=== PATIENT | female | born 1930 | race Caucasian/White ===

== ENCOUNTER 2017-07-20 17:39 | Inpatient (IN) | payer MEDICARE, OTHER ==
[~2017-07-20] VITALS: Ht 170.2 cm; Wt 90.0 kg
[2017-07-20 18:19] VITALS: BP 194/83
--- NOTE | 2017-07-20 18:30 | NUR ---
NSG NOTE; ADMISSION DIRECT ADMISSION TO ROOM 107 VIA W/C ACCOMP BY FAMILY MEMBERS PT STATES HER LEFT FOOT HAS GOTTEN MORE SWOLLEN OVER THE LAST 3 DAYS AND IS PURPLE IN COLOR.
[2017-07-20] MEDS ORDERED: METHADONE 5 MG TABLET. PO PRN (19:15)
[2017-07-20] MEDS ORDERED: traMADol 50 MG TABLET PO PRN (19:15)
[2017-07-20] MEDS ORDERED: ASPI325T8 PO (19:16)
[2017-07-20] MEDS ORDERED: MELO15TA23 PO (19:16)
[2017-07-20] MEDS ORDERED: CHOL10003 PO (19:16)
[2017-07-20] MEDS ORDERED: TRAM50TA PO (19:16)
[2017-07-20] MEDS ORDERED: METH5TAB2 PO (19:16)
[2017-07-20] MEDS ORDERED: TERA5CAP3 PO (19:16)
[2017-07-20] MEDS ORDERED: SERT100T PO (19:16)
[2017-07-20] MEDS ORDERED: VITA400C36 PO (19:16)
[2017-07-20] MEDS ORDERED: TOLT4CAP PO (19:16)
[2017-07-20] MEDS ORDERED: QUIN10TA15 PO (19:16)
--- NOTE | 2017-07-20 19:26 | NUR ---
NSG NOTE; LEFT FOOT PT ARRIVED AND SAT ON THE SIDE OF THE BED. HER FOOT WAS WRAPPED IN COBAN. HER TOES THAT WERE VISIBLE WERE PURPLE WE GOT HER FLAT IN THE BED AND REMOVED THE WRAP. HER TOES WERE INITIALLY PURPLE WITH POOR CAP REFILL. THE PEDAL PULSES ARE PRESENT AND STRONG. AFTER HAVING HER LEGS UP ON THE BED FOR SEVERAL MINUTES, THE TOES REGAINED COLOR AND BECAME MORE PINK RATHER THAN PURPLE. U/S IS IN THE ROOM AT THIS TIME PERFORMING THE ARTERIAL DOPLER ON HER LEG
--- NOTE | 2017-07-20 19:53 | RAD ---
EXAM: Left lower extremity arterial Doppler sonogram. HISTORY: Foot discoloration and pain. TECHNIQUE: Grayscale and color Doppler sonographic imaging of the lower extent of the arteries with spectral waveform analysis was performed. COMPARISON: None. FINDINGS: There are normal waveforms and peak systolic velocities within the left lower extremity arteries. No occlusion is seen. No high-grade stenosis is seen. For reference purposes, the peak systolic velocities measure 107 cm/s within the common femoral artery, 90 cm/s within the deep femoral artery, 104 cm/s within the proximal superficial femoral artery, 63 cm/s within the mid superficial femoral artery, 73 cm/s within the distal superficial femoral artery, 77 cm/s within the popliteal artery, 38 cm/s within the proximal posterior tibial artery, 56 cm/s within the distal posterior tibial artery, 41 cm/s within the peroneal artery, 28 cm/s within the anterior tibial artery, and 78 cm/s within the dorsalis pedis artery. IMPRESSION: No Doppler evidence of hemodynamically significant stenosis involving the left lower extremity arteries. Electronically signed by: Karen Savage MD (07/20/2017 7:50 PM) [facility]
[2017-07-20 19:57] LABS: BASO % 1 % (0-3); EOS # 0.3 x10^3/uL (0.0-0.7); EOS % 5 % (0-3); HEMATOCRIT 42.2 % (36.0-47.0); HEMOGLOBIN 14.3 g/dL (12.0-15.5); LYMPH # 1.3 x10^3/uL (1.0-4.8); LYMPH % 21 % (24-48); MEAN CORPUSCULAR HEMOGLOBIN 32 pg (25-35); MEAN CORPUSCULAR HGB CONC 34 g/dL (31-37); MEAN CORPUSCULAR VOLUME 95 fL (79-100); MONO # 0.6 x10^3/uL (0.0-1.1); MONO % 10 % (0-9); NEUT # 3.9 x10^3uL (1.8-7.7); NEUT % 63 % (31-73); PLATELET COUNT 199 x10^3/uL (140-400); RED BLOOD COUNT 4.46 x10^6/uL (3.50-5.40); RED CELL DISTRIBUTION WIDTH 14.8 % (11.5-14.5); WHITE BLOOD COUNT 6.1 x10^3/uL (4.0-11.0)
[2017-07-20 20:02] LABS: ALBUMIN 3.6 g/dL (3.4-5.0); CALCIUM 9.8 mg/dL (8.5-10.1); CREATININE 0.8 mg/dL (0.6-1.0); TOTAL BILIRUBIN 0.8 mg/dL (0.2-1.0); TOTAL PROTEIN 7.2 g/dL (6.4-8.2)
[2017-07-20 20:03] LABS: POTASSIUM 4.4 mmol/L (3.5-5.1)
[2017-07-20] MEDS ORDERED: MELATONIN 3 MG TABLET PO PRN (20:15)
[2017-07-20] MEDS ORDERED: SERTRALINE 100 MG TABLET. PO SCH (21:00)
[2017-07-20] MEDS ORDERED: TERAZOSIN 5 MG CAPSULE. PO SCH (21:00)
[2017-07-20 21:45] VITALS: BP 162/76
[2017-07-20 22:50] VITALS: BP 125/65
[2017-07-21 06:00] VITALS: BP 124/62
[2017-07-21 06:22] LABS: BASO % 1 % (0-3); EOS # 0.3 x10^3/uL (0.0-0.7); EOS % 7 % (0-3); HEMOGLOBIN 12.6 g/dL (12.0-15.5); LYMPH # 1.3 x10^3/uL (1.0-4.8); LYMPH % 30 % (24-48); MEAN CORPUSCULAR HEMOGLOBIN 32 pg (25-35); MEAN CORPUSCULAR HGB CONC 34 g/dL (31-37); MEAN CORPUSCULAR VOLUME 95 fL (79-100); MONO # 0.5 x10^3/uL (0.0-1.1); MONO % 11 % (0-9); NEUT # 2.2 x10^3uL (1.8-7.7); NEUT % 51 % (31-73); PLATELET COUNT 152 x10^3/uL (140-400); RED BLOOD COUNT 3.91 x10^6/uL (3.50-5.40); RED CELL DISTRIBUTION WIDTH 14.6 % (11.5-14.5); WHITE BLOOD COUNT 4.2 x10^3/uL (4.0-11.0)
[2017-07-21 06:28] LABS: CALCIUM 9.1 mg/dL (8.5-10.1); CREATININE 0.7 mg/dL (0.6-1.0); GFR 79.3; POTASSIUM 3.7 mmol/L (3.5-5.1)
[2017-07-21] MEDS ORDERED: IOHEXOL 300 MG/ML 75 ML VIAL. IV ONE (06:30)
[2017-07-21] MEDS ORDERED: CONTRAST GIVEN MC PRN (06:30)
[2017-07-21] MEDS: OXYBUTYNIN CHLORIDE 5 MG TABLET PO SCH ×2 (08:24→14:00)
--- NOTE | 2017-07-21 08:40 | RAD ---
CHEST PA LATERAL Clinical Indication: Shortness of air Comparison: Chest radiograph dated 06/11/2006 Findings: Low lung volume. No focal consolidations. Normal pulmonary vasculature. No pleural effusion or pneumothorax. The cardiomediastinal silhouette and great vessels are normal. Large hiatal hernia. No acute osseous abnormality. IMPRESSION: 1. No acute cardiopulmonary process. 2. Large hiatal hernia.
--- NOTE | 2017-07-21 08:53 | RAD ---
CT CHEST WITH CONTRAST, PULMONARY ANGIOGRAM History: High D-dimer, shortness of air, concerning for PE Comparison: Chest radiograph dated 06/11/2006. Technique: Helical CT of the chest was performed after the administration of 75 cc of Omnipaque 300 intravenous contrast according to PE protocol. 3-D MIP coronal reconstruction was performed to better evaluate the pulmonary arteries. Findings: Pulmonary arteries are adequately opacified. There is no evidence of pulmonary embolism. The thyroid is symmetric. There is no axillary, mediastinal, or hilar adenopathy. Large hiatal hernia. Mild atherosclerosis of the thoracic aorta and its branches. Aortic valvular calcifications. Coronary artery calcifications. The cardiac size is normal. There is no pericardial effusion. The central airways are patent. Left lower lobe atelectasis related to large lateral hernia. 0.4 cm right upper lobe nodule (image 19, series 3). There is no focal consolidation. No pleural effusion is observed. There is no pneumothorax. 1.8 cm right renal cyst. The visualized upper abdomen is otherwise unremarkable. There are mild degenerative changes of the thoracic spine. No acute osseous abnormality. IMPRESSION: 1. There is no CT evidence of pulmonary embolus. 2. 0.4 cm right upper lobe pulmonary nodule. Following Fleischner criteria below, if patient is of low risk, no further follow-up is required. If patient is of high risk, recommend follow-up CT chest in 12 months. 3. Large hiatal hernia. Nodules detected incidentally at non-screening CT Nodule size (mm) less than or equal to 4 Low Risk patients- no follow-up needed High Risk patients- follow-up at 12 months and if no change, no further imaging needed. Nodule size > 4-6 mm Low risk patients- follow- up at 12 months and if no change, no further imaging needed High risk patients- initial follow-up CT at 6-12 months and then at 18-24 months if no change. Nodule Size > 6-8 mm Low risk patients- initial follow-up CT at 6-12 months and then at 18-24 months if no change. High risk patients- initial follow- up CT at 3-6 months and then at 9-12 months if no change, Nodule Size >8 mm Either low or high risk patients: Follow-up CT at around 3, 9 and 24 [address], PET, and/or biopsy Note: newly detected indeterminate nodule in person 35 years of age or older. Low risk patients- minimal or absent history of smoking and/or other known risk factors. High risk patients- history of smoking or of other known risk factors. PQRS Compliance Statement: One or more of the following individualized dose reduction techniques were utilized for this examination: 1. Automated exposure control 2. Adjustment of the mA and/or kV according to patient size 3. Use of iterative reconstruction technique
[2017-07-21] MEDS ORDERED: MELOXICAM 15 MG TABLET. PO SCH (09:00)
[2017-07-21] MEDS ORDERED: VITAMIN E. 400 UNIT CAPSULE. PO SCH (09:00)
[2017-07-21] MEDS ORDERED: LISINOPRIL 10 MG TABLET PO SCH (09:00)
[2017-07-21] MEDS ORDERED: CHOLECALCIFEROL (VITAMIN D3) 1,000 UNIT TABLET PO SCH (09:00)
[2017-07-21] MEDS ORDERED: ASPIRIN 325 MG TABLET PO SCH (09:00)
[2017-07-21 10:59] VITALS: BP 114/63
[2017-07-21] MEDS ORDERED: TRAM50TA PO (12:47)
--- NOTE | 2017-07-21 12:57 | RAD ---
Bilateral lower extremity venous Doppler ultrasound History: Concern for DVT, Swollen red legs Comparison: None. Procedure: Color flow, spectral Doppler analysis, and 2D images are obtained with and without compression in the legs Findings: There is normal color flow and compressibility of all visualized deep vein segments. No evidence of deep venous thrombus is present. Visualized bilateral greater saphenous veins are patent. Visualized bilateral posterior tibial and peroneal veins are patent. Spectral waveform analysis is normal, all vein segments augment normally. IMPRESSION: No evidence of bilateral lower extremity deep venous thrombosis.
--- NOTE | 2017-07-21 14:57 | NUR ---
Pt discharged home for self care. Pt left unit in stable condition via wheelchair accompanied by spouse and rn. IV discontinued without complications, pressure dressing applied. Discharge instructions and new prescription instructions given to pt. All pt belongings sent with pt.
--- NOTE | 2017-07-21 15:11 | RAD ---
FOOT LEFT 3V Clinical Indication: Foot pain Comparison: None. Findings: No acute fracture or malalignment. Hallux valgus deformity. Moderate multifocal arthrosis. Second through fifth hammertoe deformities. Os naviculare. Calcaneal enthesophytes. Suggestion of diffuse osteopenia. Moderate soft tissue swelling of the foot and ankle. Vascular calcifications. No radiopaque foreign body. IMPRESSION: 1. No acute fracture or malalignment. 2. Moderate multifocal arthrosis. 3. Moderate soft tissue swelling of the foot and ankle.
--- NOTE | 2017-07-22 00:15 | DS ---
DATE OF DISCHARGE: 07/21/2017 HOSPITAL COURSE: An 86-year-old female with severe coldness to her left foot with decreased capillary refill, severe pain in that foot. The patient was admitted. Arterial Dopplers were performed. The patient made excellent progress during the rest of her hospitalization. She did have an elevated D-dimer. CTA was performed and it was negative. Possible repeat CT scan in a year. Other than that, the patient also had venous Dopplers, they were negative. Arterial Doppler did show no major obstruction, although there may have been some apparently small vessel disease. Otherwise, the patient made good progress and was discharged home. IMPRESSION: Arterial venous insufficiency. The patient will continue to monitor her situation with her legs and make further evaluation as indicated as an outpatient. See EMRAD. Regular diet. JASON PORTILLO MD DR: ELSY/shakira JOB#: [id number] / [id number]
== END 2017-07-21 14:45 | disposition home or self-care (01) | DRG 301 ==
LOC: 1 SOUTH 17:39
PROVIDERS: ADMIT Family Medicine; ATTEND Family Medicine
DX: I73.9 Peripheral vascular disease, unspecified (principal); I10 Essential (primary) hypertension; I87.2 Venous insufficiency (chronic) (peripheral); R79.1 Abnormal coagulation profile; R32 Unspecified urinary incontinence; Z96.641 Presence of right artificial hip joint
CPT/HCPCS: 36415; 71046; 71275; 73630; 80048; 80053; 83605; 85025; 85379; 85610; 85651; 93923; 93970; Q9967

== ENCOUNTER 2018-03-16 14:05 | Inpatient (IN) | payer MEDICARE, OTHER ==
[~2018-03-16] VITALS: Ht 170.2 cm; Wt 84.5 kg
[~2018-03-16 14:05] MED LIST: ASPI325T8 PO; CHOL10003 PO; MELO15TA23 PO; METH5TAB2 PO; QUIN10TA15 PO; SERT100T PO; TERA5CAP3 PO; TOLT4CAP PO; TRAM50TA PO; VITA400C36 PO
[2018-03-16 15:23] LABS: BASO % 0 % (0-3); EOS % 0 % (0-3); HEMATOCRIT 41.7 % (36.0-47.0); HEMOGLOBIN 13.8 g/dL (12.0-15.5); LYMPH # 0.4 x10^3/uL (1.0-4.8); LYMPH % 4 % (24-48); MEAN CORPUSCULAR HEMOGLOBIN 31 pg (25-35); MEAN CORPUSCULAR HGB CONC 33 g/dL (31-37); MEAN CORPUSCULAR VOLUME 94 fL (79-100); MONO # 0.9 x10^3/uL (0.0-1.1); MONO % 10 % (0-9); NEUT # 8.3 x10^3uL (1.8-7.7); NEUT % 86 % (31-73); PLATELET COUNT 177 x10^3/uL (140-400); RED BLOOD COUNT 4.42 x10^6/uL (3.50-5.40); RED CELL DISTRIBUTION WIDTH 14.3 % (11.5-14.5); WHITE BLOOD COUNT 9.6 x10^3/uL (4.0-11.0)
[2018-03-16 15:39] LABS: ALBUMIN 3.1 g/dL (3.4-5.0); ALBUMIN/GLOBULIN RATIO 0.8 (1.0-1.7); CALCIUM 9.9 mg/dL (8.5-10.1); CREATININE 0.8 mg/dL (0.6-1.0); GFR 67.8; POTASSIUM 4.4 mmol/L (3.5-5.1); TOTAL BILIRUBIN 1.3 mg/dL (0.2-1.0); TOTAL PROTEIN 7.2 g/dL (6.4-8.2)
--- NOTE | 2018-03-16 16:30 | RAD ---
Right rib series to include a chest radiograph 03/16/2018 CLINICAL HISTORY: Right rib pain post fall. A portable AP digital radiograph of the chest was obtained. Portable oblique and 2 portable AP digital radiographs of the right ribs were obtained. Comparison study is dated 07/21/2017. The cardiac silhouette is mildly enlarged. The thoracic aorta is tortuous. Atherosclerotic calcification of the thoracic aorta is seen. There is a large hiatal hernia. No acute pulmonary infiltrate is seen. No pleural effusion or pneumothorax is noted. Degenerative changes are seen involving the thoracic spine and both shoulders. No right-sided rib fracture is seen. IMPRESSION: No right-sided rib fracture is seen. Electronically signed by: Erwin Mann MD (03/16/2018 4:27 PM) [facility] [place]
--- NOTE | 2018-03-16 16:42 | RAD ---
Three-view right knee radiographs 03/16/2018 CLINICAL HISTORY: Fall with right knee pain. AP, lateral and oblique digital radiographs of the right knee were obtained. No fracture or dislocation of the right knee is seen. There is a small to moderate prepatellar joint effusion. Moderate degenerative changes are seen involving all 3 compartments of the right knee. Small bony densities which measure 2 mm to 7 mm in size are seen anteriorly within the right knee joint consistent with loose bodies. IMPRESSION: No acute fracture or dislocation of the right knee is seen. Electronically signed by: Erwin Mann MD (03/16/2018 4:38 PM) [facility] [place]
--- NOTE | 2018-03-16 17:05 | PHYS DOC ---
Past History Past Medical History: Depression, Hypertension, Other Past Surgical History: Hip Replacement, Other Alcohol Use: Occasionally Drug Use: None Adult General Chief Complaint Chief Complaint: MECHANICAL FALL HPI HPI Patient is an 87-year-old female who presents with report of midthoracic back pain after falling at home yesterday. Family was attempting to help patient transfer from her recliner chair to wheelchair when she fell out of the recliner. Patient was slowly lowered to the ground but still landed on her back and is complaining of pain since. She states that last night the pain was not severe but this morning when she woke up the pain was much worse. She rates pain at nearly a 10 out of 10. Patient arrived via EMS and has already been given a dose of fentanyl. She states that at this time pain is more like a 6 out of 10. She denies any painful urination, fever, nausea or vomiting. She also denies any radiation of the pain and has had no loss of bowel or bladder control. Review of Systems Review of Systems Constitutional: Denies fever or chills [] Respiratory: Denies cough or shortness of breath [] Cardiovascular: No additional information not addressed in HPI [] GI: Denies abdominal pain, nausea, vomiting or diarrhea [] : Denies dysuria or hematuria [] Musculoskeletal: Complains of midthoracic back pain [] Integument: Denies rash or skin lesions [] Neurologic: Denies headache, focal weakness or sensory changes [] All other systems were reviewed and found to be within normal limits, except as documented in this note. Allergies Allergies Allergies Coded Allergies Type Severity Reaction Last Updated Verified No Known Drug Allergies 07/20/17 No Physical Exam Physical Exam Constitutional: Well developed, well nourished, no acute distress, non-toxic appearance. [] HENT: Normocephalic, atraumatic, bilateral external ears normal, oropharynx moist, no oral exudates, nose normal. [] Eyes: PERRLA, EOMI, conjunctiva normal, no discharge. [] Neck: Normal range of motion, no tenderness, supple, no stridor. [] Cardiovascular: Regular rate and rhythm [] Lungs & Thorax: Bilateral breath sounds clear to auscultation [] Abdomen: Bowel sounds normal, soft, no tenderness. [] Skin: Warm, dry, no erythema, no rash. [] Back: Examination of the back demonstrates tenderness to palpation just to the right of midline around the mid to lower thoracic region from T8-T11. [] Extremities: No tenderness, no cyanosis, no clubbing, ROM intact. [] Neurologic: Alert and oriented X 3, no focal deficits noted. [] Current Patient Data Vital Signs Vital Signs Date Time Temp Pulse Resp B/P (MAP) Pulse Ox O2 Delivery O2 Flow Rate FiO2 03/16/18 16:37 83 20 177/82 (113) 98 Room Air 03/16/18 14:05 98.0 Lab Results Laboratory Tests Test 03/16/18 15:00 White Blood Count 9.6 x10^3/uL (4.0-11.0) Red Blood Count 4.42 x10^6/uL (3.50-5.40) Hemoglobin 13.8 g/dL (12.0-15.5) Hematocrit 41.7 % (36.0-47.0) Mean Corpuscular Volume 94 fL (79-100) Mean Corpuscular Hemoglobin 31 pg (25-35) Mean Corpuscular Hemoglobin Concent 33 g/dL (31-37) Red Cell Distribution Width 14.3 % (11.5-14.5) Platelet Count 177 x10^3/uL (140-400) Neutrophils (%) (Auto) 86 % (31-73) H Lymphocytes (%) (Auto) 4 % (24-48) L Monocytes (%) (Auto) 10 % (0-9) H Eosinophils (%) (Auto) 0 % (0-3) Basophils (%) (Auto) 0 % (0-3) Neutrophils # (Auto) 8.3 x10^3uL (1.8-7.7) H Lymphocytes # (Auto) 0.4 x10^3/uL (1.0-4.8) L Monocytes # (Auto) 0.9 x10^3/uL (0.0-1.1) Eosinophils # (Auto) 0.0 x10^3/uL (0.0-0.7) Basophils # (Auto) 0.0 x10^3/uL (0.0-0.2) Platelet Estimate Pending Sodium Level 138 mmol/L (136-145) Potassium Level 4.4 mmol/L (3.5-5.1) Chloride Level 101 mmol/L (98-107) Carbon Dioxide Level 25 mmol/L (21-32) Anion Gap 12 (6-14) Blood Urea Nitrogen 19 mg/dL (7-20) Creatinine 0.8 mg/dL (0.6-1.0) Estimated GFR (Cockcroft-Gault) 67.8 BUN/Creatinine Ratio 24 (6-20) H Glucose Level 103 mg/dL (70-99) H Calcium Level 9.9 mg/dL (8.5-10.1) Total Bilirubin 1.3 mg/dL (0.2-1.0) H Aspartate Amino Transferase (AST) 15 U/L (15-37) Alanine Aminotransferase (ALT) 11 U/L (14-59) L Alkaline Phosphatase 72 U/L (46-116) Total Protein 7.2 g/dL (6.4-8.2) Albumin 3.1 g/dL (3.4-5.0) L Albumin/Globulin Ratio 0.8 (1.0-1.7) L EKG EKG [] Radiology/Procedures Radiology/Procedures [] Impressions: PROCEDURE: RIBS RIGHT AND PA CHEST Right rib series to include a chest radiograph 03/16/2018 CT imaging of the thoracic and lumbar spine demonstrates no acute bony abnormalities. CLINICAL HISTORY: Right rib pain post fall. A portable AP digital radiograph of the chest was obtained. Portable oblique and 2 portable AP digital radiographs of the right ribs were obtained. Comparison study is dated 07/21/2017. The cardiac silhouette is mildly enlarged. The thoracic aorta is tortuous. Atherosclerotic calcification of the thoracic aorta is seen. There is a large hiatal hernia. No acute pulmonary infiltrate is seen. No pleural effusion or pneumothorax is noted. Degenerative changes are seen involving the thoracic spine and both shoulders. No right-sided rib fracture is seen. IMPRESSION: No right-sided rib fracture is seen. Electronically signed by: Erwin Mann MD (03/16/2018 4:27 PM) [facility] [place] Course & Med Decision Making Course & Med Decision Making Pertinent Labs and Imaging studies reviewed. (See chart for details) [] Dragon Disclaimer Dragon Disclaimer This electronic medical record was generated, in whole or in part, using a voice recognition dictation system. Departure Departure: Impression: Primary Impression: Intractable back pain Disposition: 09 ADMITTED INPATIENT Admitting Physician: Jason Ochoa Condition: IMPROVED Referrals: JASON OCHOA MD (PCP) PAULINO OSORIO Jr. DO Mar 16, 2018 17:05
[2018-03-16] MEDS ORDERED: ORPHENADRINE CITRATE 60 MG/2 ML VIAL. IM PRN (17:15)
[2018-03-16] MEDS ORDERED: ONDANSETRON PF 4 MG/2 ML VIAL. IV PRN (17:15)
[2018-03-16] MEDS ORDERED: ORPHENADRINE CITRATE 60 MG/2 ML VIAL. IV ONE (17:30)
[2018-03-16 18:02] LABS: OVALOCYTES OCC; PLT ESTIMATE ADEQUATE (ADEQUATE)
[2018-03-16 18:13] VITALS: BP 163/93
[2018-03-16] MEDS ORDERED: traMADol 50 MG TABLET PO PRN (18:30)
[2018-03-16] MEDS ORDERED: METHADONE 5 MG TABLET. PO PRN (18:30)
[2018-03-16] MEDS ORDERED: Influenza vaccine per PROTOCOL. MC PRN (18:45)
[2018-03-16] MEDS: METHADONE 5 MG TABLET. PO SCH (20:04)
[2018-03-16] MEDS: SERTRALINE 100 MG TABLET. PO SCH (20:04)
[2018-03-16] MEDS: TERAZOSIN 5 MG CAPSULE. PO SCH (20:05)
[2018-03-16] MEDS: OXYBUTYNIN CHLORIDE 5 MG TABLET PO SCH (20:06)
[2018-03-16 23:10] VITALS: BP 134/63
[2018-03-17 06:25] VITALS: BP 120/69
[2018-03-17] MEDS: MELOXICAM 15 MG TABLET. PO SCH (08:59)
[2018-03-17] MEDS: CHOLECALCIFEROL (VITAMIN D3) 1,000 UNIT TABLET PO SCH (08:59)
[2018-03-17] MEDS: VITAMIN E. 400 UNIT CAPSULE. PO SCH (08:59)
[2018-03-17] MEDS: METHADONE 5 MG TABLET. PO SCH ×3 (08:59→20:53)
[2018-03-17] MEDS: OXYBUTYNIN CHLORIDE 5 MG TABLET PO SCH ×3 (08:59→20:52)
[2018-03-17] MEDS: LISINOPRIL 10 MG TABLET PO SCH (08:59)
[2018-03-17] MEDS: ASPIRIN 325 MG TABLET PO SCH (09:00)
[2018-03-17 11:21] VITALS: BP 90/58
[2018-03-17] MEDS ORDERED: traMADol 50 MG TABLET PO PRN (12:45)
--- NOTE | 2018-03-17 13:58 | HP ---
ADMIT DATE: 03/16/2018 HISTORY OF PRESENT ILLNESS: This is a very delightful 87-year-old female, who has been having trouble with excruciating pain to the point where she can get out of bed. The patient noted she had a fall and then mid thoracic back pain. The day before yesterday, she fell at home. The patient was able to get back in her recliner with the help of her family. She rates the pain is 10/10. The patient was brought in via EMS to be evaluated there and will need further testing on her. The patient has severe problems with her hip. The patient was noted to have severe pain there as well. PAST MEDICAL HISTORY: Cataracts, cataract extraction, cardiac problems, hypertension, obesity, incontinence, arthritis, joint pain, right hip replacement with hardware, back pain, and depression. Tetanus shot, pneumococcal vaccinations, latter being up-to-date. FAMILY HISTORY: Brother with stomach cancer and brain cancer. Father with aneurysm. One sister with heart failure. Mother with Alzheimer's disease. ALLERGIES: No known allergies. MEDICATIONS Include ____ 5 mg at bedtime, quinapril 10 mg, aspirin 325, Meloxicam 15. New medications started here: Tramadol p.r.n., sertraline, Zoloft, Detrol-LA, vitamin D3, vitamin E. ADVERSE REACTIONS: No known drug allergies. SOCIAL HISTORY: Denies smoking, alcohol or drug use. Lives at home with her and has very good family support. REVIEW OF SYSTEMS: She denies chest pain or shortness of breath. She denies abdominal pain. Denies any melena, hematochezia, or hematemesis, but does have severe back and hip pain. She is pretty much confined to a wheelchair or to a situation. Otherwise, she will be continued to be monitored there. PHYSICAL EXAMINATION: GENERAL: Pleasant white female in moderate to severe pain. VITAL SIGNS: Blood pressure initially 195/100, respiratory rate 16, and pulse 83, afebrile. HEENT: The patient's head was atraumatic, normocephalic. Eyes: PERRLA without jaundice. Mouth and throat were normal. LUNGS: Diminished, but clear. CARDIOVASCULAR: Regular sinus rhythm. ABDOMEN: Soft and nontender. EXTREMITIES: Severe pain to the right hip and back is noted. NEUROLOGIC: Intact. LABORATORY DATA: The patient's labs are basically stable with a CBC. The patient's blood sugar is 103 and bilirubin 1.3. PLAN: The patient will be admitted for further evaluation, although severity of her pain, started her on methadone for pain relief and make further evaluation on her as indicated per those results. JASON PORTILLO MD DR: ELSY/shakira JOB#: [id number] / [id number]
[2018-03-17 15:00] VITALS: BP 108/64
[2018-03-17 18:39] VITALS: BP 111/63
[2018-03-17] MEDS: TERAZOSIN 5 MG CAPSULE. PO SCH (20:52)
[2018-03-17] MEDS: SERTRALINE 100 MG TABLET. PO SCH (20:53)
[2018-03-17 23:50] VITALS: BP 102/62
[2018-03-18 07:14] VITALS: BP 120/65
[2018-03-18] MEDS: METHADONE 5 MG TABLET. PO SCH (08:46)
[2018-03-18] MEDS: MELOXICAM 15 MG TABLET. PO SCH (08:46)
[2018-03-18] MEDS: ASPIRIN 325 MG TABLET PO SCH (08:46)
[2018-03-18 08:47] VITALS: BP 120/65
[2018-03-18] MEDS: OXYBUTYNIN CHLORIDE 5 MG TABLET PO SCH (08:47)
[2018-03-18] MEDS: CHOLECALCIFEROL (VITAMIN D3) 1,000 UNIT TABLET PO SCH (08:47)
[2018-03-18] MEDS: VITAMIN E. 400 UNIT CAPSULE. PO SCH (08:47)
[2018-03-18] MEDS: LISINOPRIL 10 MG TABLET PO SCH (08:47)
[2018-03-18] MEDS ORDERED: PNEUMOC CONJ VACC 23-VALENT 0.5 ML VIAL. VAX IM ONE (09:00)
--- NOTE | 2018-03-18 09:33 | RAD ---
PQRS Compliance Statement: One or more of the following individualized dose reduction techniques were utilized for this examination: 1. Automated exposure control 2. Adjustment of the mA and/or kV according to patient size 3. Use of iterative reconstruction technique Thoracic and lumbar spine CT without contrast March 17, 2018 INDICATION: Lower back pain for 4 days. COMPARISON: None available TECHNIQUE: Axial CT images of the thoracic and lumbar spine were obtained without intravenous contrast. Coronal and sagittal reformats are provided. FINDINGS: Thoracic spine: Alignment of the lumbar spine is normal. There is a superior plate Schmorl's node at T11 with minimal height loss, likely chronic. There is mild disc height loss at T9-T10, T10-T11 and T11-T12 with associated vacuum disc, and endplate remodeling. Moderate anterior marginal osteophytosis is identified from T7-T8 through T11-T12. Mild to moderate multilevel facet arthropathy is identified. No significant osseous neuroforaminal or spinal canal stenosis. There is subsegmental atelectasis at the left lung base. No suspicious pulmonary mass. Descending thoracic aorta is normal in caliber measuring up to 2.8 cm. There is a large hiatal hernia with predominantly intrathoracic stomach and air-fluid level. Lumbar spine: There is grade 1 retrolisthesis of L2 on L3 and L3 on L4. There is minimal retrolisthesis of L4 on L5. No significant height loss is identified. There is mild sclerosis involving the anterior superior endplate of L2 without definite fracture. There is moderate to advanced disc height loss from L2-L3 through L5-S1 with multilevel vacuum disc phenomena. Large anterior marginal osteophytes are present. There is levoconvex curvature of the lumbar spine. No definite acute fracture involving the sacrum. Vacuum disc phenomena is noted in the left sacroiliac joint. Partial visualization of right total hip arthroplasty is noted. Nondilated bowel loops are identified. Renal cortical cysts are identified. There is no hydronephrosis. Visualized portions of the retroperitoneum appear normal. Abdominal aorta is normal in caliber with moderate calcified atheromatous plaque. L2-L3: There is a posterior disc osteophyte complex with moderate facet arthropathy and ligamentum flavum infolding resulting in moderate left and mild right neuroforaminal stenosis. There is mild to moderate spinal canal stenosis. L3-L4: There is a circumferential disc bulge with moderate facet arthropathy and ligamentum flavum infolding. There is moderate osseous bilateral neuroforaminal stenosis. There is mild to moderate spinal canal stenosis. L4-L5: There is a moderate circumferential disc bulge. There is severe facet arthropathy ligamentum flavum infolding. There is severe left and moderate right neuroforaminal stenosis. Mild to moderate spinal canal stenosis. L5-S1: There is a posterior disc osteophyte complex with central disc protrusion. There is severe facet arthropathy. There is severe bilateral neuroforaminal stenosis. Mild spinal canal stenosis. IMPRESSION: 1. There is a superior endplate Schmorl's node involving T11 with minimal height loss. Findings appear chronic. 2. No definite acute fracture of the lumbar spine. Multilevel listhesis noted, as described in detail above. 3. 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 Electronically signed by: Susanne Donaldson MD (03/18/2018 9:29 AM) [id number]
[2018-03-18] MEDS ORDERED: METH5TAB2 PO (09:44)
[2018-03-18] MEDS ORDERED: TRAM50TA PO (09:44)
[2018-03-18] MEDS ORDERED: MELO15TA23 PO (09:44)
--- NOTE | 2018-03-18 18:03 | DS ---
DATE OF DISCHARGE: 03/18/2018 HOSPITAL COURSE: This is an 87-year-old female, who has been having trouble with excruciating pain in her back to the point where she could not move. Pain was rated 10/10. The patient had to be brought in via EMS. She has severe chronic problems with her left hip and does not want that repaired. The patient's scans demonstrated severe advanced degenerative changes of the lumbar spine and continues to need to be made monitored carefully on that. Her change of medication, she had been on several other types of methadone, seem to be the most efficacious in relieving her pain and once her pain was relieved, she was able to set up a little bit more comfortably and make further evaluation. She was also extremely low in her vitamin D and also had some mild loss of protein or decrease there. In any case, the patient made excellent progress. She did not want to go to a skilled facility, wanted to go home. She was discharged home. 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 DISCHARGE INSTRUCTIONS: The patient was discharged home per her request home health. Follow up with PT, OT as an outpatient and then follow up accordingly. Regular diet, decreased activity, MRAD noted. JASON PORTILLO MD DR: ELSY/shakira JOB#: [id number] / [id number]
== END 2018-03-18 11:30 | disposition home health service (06) | DRG 552 ==
LOC: ER 14:05 → 1 SOUTH 16:50
PROVIDERS: ADMIT Family Medicine; ATTEND Family Medicine
DX: M47.816 Spondylosis without myelopathy or radiculopathy, lumbar region (principal); E44.1 Mild protein-calorie malnutrition; M16.12 Unilateral primary osteoarthritis, left hip; I10 Essential (primary) hypertension; W07.XXXA Fall from chair, initial encounter; M41.9 Scoliosis, unspecified; F32.9 Major depressive disorder, single episode, unspecified; Z96.641 Presence of right artificial hip joint; E66.9 Obesity, unspecified; Y93.89 Activity, other specified; Y92.098 Other place in other non-institutional residence as the place of occurrence of the external cause; Y99.8 Other external cause status; Z80.0 Family history of malignant neoplasm of digestive organs; Z68.29 Body mass index [BMI] 29.0-29.9, adult; Z82.0 Family history of epilepsy and other diseases of the nervous system; Z82.49 Family history of ischemic heart disease and other diseases of the circulatory system; Z80.8 Family history of malignant neoplasm of other organs or systems; Z79.899 Other long term (current) drug therapy; Z23 Encounter for immunization
CPT/HCPCS: 36415; 51702; 71101; 72128; 72131; 73562; 80053; 82306; 84443; 85025; 90471; 90732; 90756; 96374; 96375; G0009; J2360; J3010; 97530; 99285-25; Q2035

== ENCOUNTER 2020-08-16 13:50 | Inpatient (IN) | payer MEDICARE, OTHER ==
[~2020-08-16] VITALS: Ht 170.2 cm; Wt 74.1 kg
[~2020-08-16 13:50] MED LIST changes: +VITA-8 PO; -VITA400C36 PO
[2020-08-16 15:43] VITALS: BP 170/90
--- NOTE | 2020-08-16 17:10 | RAD ---
EXAM: Chest, single view. HISTORY: Nausea, vomiting and diarrhea. COMPARISON: 03/16/2018. FINDINGS: A frontal view of the chest is obtained. There is stable elevation of the left hemidiaphrag m and a large hiatal hernia. There is a stable prominent cardiac silhouette. There is a suspected tra ce left pleural effusion and left basilar atelectasis. There is incidental advanced degenerative pulliam ge involving both shoulders. IMPRESSION: 1. Stable elevation of the left hemidiaphragm and large hiatal hernia. 2. Suspected trace left pleural effusion and left basilar atelectasis. Electronically signed by: Karen Savage MD (08/16/2020 5:08 PM) [id number]
[2020-08-16] MEDS: amLODIPine BESYLATE 10 MG TABLET PO SCH (17:13)
--- NOTE | 2020-08-16 17:26 | NUR ---
NURSING NOTE ADMIT PT DIRECT ADMIT TO ROOM 119 FOR DX OF N/V DEHYDRATION. PT STATES SHE HAS BEEN HAVING DIARRHEA FOR A MONTH NOW. PT STATES SHE LIVES HOME ALONE, IS WHEELCHAIR BOUND AND CANNOT WALK, STATES SHE CAN TRANSFER HERSELF FROM HER CHAIR TO HER WHEELCHAIR TO THE RESTROOM AND BACK TO WHEELCHAIR. PT DENIES FALLS SINCE LAST ADMISSION IN 2018. PT HAS HAD BOTH COVID VACCINES. PT STATES SHE USES [facility] BUT HAS NOT TAKEN ANY HOME MEDICATION FOR THE LAST YEAR. PT DAUGHTER JUDY WELLS AT BEDSIDE AND INVOLVED WITH HER CARES. ZAKIA CRUM.
[2020-08-16 17:57] LABS: BASO % 0 % (0-3); EOS % 1 % (0-3); HEMOGLOBIN 13.9 g/dL (12.0-15.5); LYMPH # 1.1 x10^3/uL (1.0-4.8); LYMPH % 15 % (24-48); MEAN CORPUSCULAR HEMOGLOBIN 31 pg (25-35); MEAN CORPUSCULAR HGB CONC 33 g/dL (31-37); MEAN CORPUSCULAR VOLUME 95 fL (79-100); MONO # 0.6 x10^3/uL (0.0-1.1); MONO % 8 % (0-9); NEUT # 5.4 x10^3uL (1.8-7.7); NEUT % 76 % (31-73); PLATELET COUNT 211 x10^3/uL (140-400); RED BLOOD COUNT 4.44 x10^6/uL (3.50-5.40); WHITE BLOOD COUNT 7.1 x10^3/uL (4.0-11.0)
--- NOTE | 2020-08-16 18:17 | EKG ---
[address] [address] Test Date: 2020-08-16 Test Time: 17:55:41 Pat Name: DANNIELLE ACOSTA Department: Room: 119 A Gender: F [employer] Machine Feeder: : [id number] Requested By: JASON PORTILLO Order Number: [id number] Reading MD: Measurements Intervals [place] Rate: 68 P: 42 RI: 222 QRS: -62 QRSD: 112 T: 64 QT: 412 QTc: 438 Interpretive Statements SINUS RHYTHM PROLONGED RI INTERVAL ABNORMAL LEFT AXIS DEVIATION RVH WITH REPOLARIZATION ABNORMALITY QRS(T) CONTOUR ABNORMALITY CONSISTENT WITH ANTERIOR INFARCT PROBABLY OLD CONSISTENT WITH INFERIOR INFARCT POSSIBLY RECENT ABNORMAL ECG RI6.01 No previous ECG available for comparison
[2020-08-16 18:20] LABS: ALBUMIN 3.1 g/dL (3.4-5.0); ALBUMIN/GLOBULIN RATIO 0.9 (1.0-1.7); CALCIUM 9.2 mg/dL (8.5-10.1); CREATININE 0.7 mg/dL (0.6-1.0); GFR 78.8; POTASSIUM 3.5 mmol/L (3.5-5.1); TOTAL BILIRUBIN 0.7 mg/dL (0.2-1.0); TOTAL PROTEIN 6.4 g/dL (6.4-8.2)
[2020-08-16 19:05] VITALS: BP 138/65
[2020-08-16] MEDS: NYSTATIN TOPICAL POWDER 15GM BOTTLE. TP SCH (19:59)
[2020-08-16 22:33] VITALS: BP 160/69
--- NOTE | 2020-08-17 01:18 | NUR ---
PT UP TO BSC X1 ASSIST. ATTEMPTED TO COLLECT URINE AND STOOL TO SEND TO LAB, UNABLE DUE TO MIXED SAMPLES. WILL TRY AGAIN WITH NEXT TOILETING.
[2020-08-17 05:43] VITALS: BP 152/69
[2020-08-17] MEDS: amLODIPine BESYLATE 10 MG TABLET PO SCH (07:33)
[2020-08-17] MEDS: NYSTATIN TOPICAL POWDER 15GM BOTTLE. TP SCH ×2 (07:33→20:50)
--- NOTE | 2020-08-17 08:11 | RAD ---
EXAM: Abdomen and pelvis CT without intravenous contrast. HISTORY: Left lower quadrant mass. TECHNIQUE: Computed tomographic images of the abdomen and pelvis were obtained without intravenous co ntrast. Multiplanar reformatting was performed. *One or more of the following individualized dose reduction techniques were utilized for this examina tion: 1. Automated exposure control. 2. Adjustment of the mA and/or kV according to patient size. 3. Use of iterative reconstruction technique. COMPARISON: None. FINDINGS: Evaluation of the lower thorax demonstrates a large hiatal hernia with intrathoracic positi oning of the stomach. There is also elevation of the left hemidiaphragm. There is a small left pleura l effusion. There is bilateral basilar atelectasis or pleural-parenchymal scarring. There is calcifie d atherosclerotic plaque involving the coronary arteries. No hepatic lesion is seen. The gallbladder, pancreas, spleen and adrenal glands are unremarkable. The re are nonobstructing right renal stones measuring up to 4 mm. There are hypodense lesions within bot h kidneys, the attenuation of which favors cysts. There is left renal atrophy and cortical lobulation likely due to scarring. The absence of contrast limits evaluation for small solid lesions. There is no appendicitis. There is circumferential wall thickening involving the colon with slight fontanez rrounding pericolonic stranding likely due to acute colitis of infectious or inflammatory etiologies. There is a large left inguinal hernia containing fat and loops of small bowel and distal colon. Ther e is no evidence of mechanical obstruction or incarceration. Evaluation of the bladder is limited due to metallic artifact from a right hip arthroplasty. There is a suspected right bladder diverticulum. There is a tortuous atherosclerotic aorta. No pathologically enlarged lymph node is seen. There is degenerative change throughout the spine with associated scoli osis and multilevel listhesis. There is severe osteoarthritis involving the left hip with associated flattening of the superior acetabulum and femoral head. There is bone demineralization. IMPRESSION: 1. Large left inguinal hernia containing fat and loops of small and large bowel, likely corresponding with the reported left lower quadrant mass. 2. Mild diffuse colonic wall thickening with slight surrounding stranding suggesting pancolitis of in fectious or inflammatory etiologies. 3. Large hiatal hernia with intrathoracic positioning of the stomach. 4. Left renal atrophy and cortical scarring. 5. Bilateral renal cysts. These are difficult to assess in the absence of contrast. Renal sonography can be performed to confirm benignity. 6. Right nephrolithiasis. Electronically signed by: Karen Savage MD (08/17/2020 8:09 AM) [id number]
[2020-08-17] MEDS ORDERED: IOHEXOL 350 MG/ML 100 ML VIAL. IV ONE ×2 (09:45→10:00)
--- NOTE | 2020-08-17 10:12 | HP ---
HISTORY OF PRESENT ILLNESS: The patient is an 89-year-old female, came in as a result of having severe problems with nausea, vomiting and abdominal pain. The patient has a large mass in her left inguinal area. CT scan shows she has a combination severe left inguinal hernia containing fat loops of small and large bowel is in the mass, making up the mass. There is also colonic wall thickening, possible pancolitis or infectious etiology there. She has a very large hiatal hernia with an intrathoracic positioning of the stomach. By and large, the patient was admitted for IV antibiotic therapy and consideration for her possible surgical repair. She is actually in very good condition despite her age. The patient, otherwise, is stable and sharp and alert. PAST SURGICAL HISTORY: Includes that of cataracts, bilateral extremity edema, peripheral vascular disease, hypertension, obesity, incontinence, severe arthritis, multiple falls, joint replacement of the right hip, depression. Immunizations for pneumonia and tetanus, up to date. No notes on the COVID vaccine. ALLERGIES: None known. FAMILY HISTORY: Positive for stomach, brain cancer, aneurysm of brain, CHF and Alzheimer's in the mother. SOCIAL HISTORY: No smoking, alcohol or drug use. Lives at home. Has good family support. REVIEW OF SYSTEMS: The patient denies any headaches, visual changes, blurred vision, double vision. Denies any major shortness of breath unless extremely exertional. The patient CVR exam, she denies any chest pain. Otherwise, basically stable there. She has been having problems with this hernia in her left inguinal area for some time. She was hoping that it would go away; however, obviously has gotten bigger, both large and small bowels are present in it. Otherwise, neurologically, she has no neuro deficits. She has some orthopedic problems of course from her arthritis. PHYSICAL EXAMINATION: GENERAL: This is a pleasant white female, looking much younger than her stated age of 89. VITAL SIGNS: Blood pressure 140/60, respiratory rate 20, pulse 60. She is afebrile. Room air at 96%. HEENT: The patient's otherwise head was atraumatic, normocephalic. Her eyes were PERRL. Mouth and throat were in good condition. NECK: The neck was in a good condition. Supple, without JVD. LUNGS: Slightly diminished in the bases, but otherwise basically clear. CVR: Regular sinus rhythm, S1, S2. ABDOMEN: Soft. There is probably 12 cm x 9 cm mass in the left inguinal area, which is soft, somewhat reducible, but still pushing down into the left inguinal area. The patient says she has still been having bowel movements. EXTREMITIES: Without clubbing, cyanosis, +1 pitting edema. NEUROLOGIC: As stated. Alert and oriented x 3. Speech fluent, spontaneous, appropriate. Cranial nerves 2-12 are grossly intact. LABORATORY DATA: Sodium ____, BUN and creatinine 15 and 0.7. BNP of 1500. Albumin 3.1, slightly low. Hematology: White count 7.1, hemoglobin ____ 13.9 and 42. The patient has no known drug allergies as noted. The patient will be admitted, placed on some IV antibiotic therapy. IMPRESSION: Pancolitis, left inguinal hernia with large and small bowel present in the hernia itself. Moderate protein malnutrition, hypernatremia, elevated D-dimer. PLAN: We will do a CTA on her pleural effusion. GARDENIA méndez applied. Continue to monitor her accordingly and we will make further assessment on her. Start her on antibiotics. Hopefully, we will convince her to at least see a surgeon for possible surgical repair if needed on that inguinal hernia. ELSY/BRITTNI/SARAI DR: ELSY/shakira TID: [id number]
--- NOTE | 2020-08-17 10:18 | NUR ---
ASSUMED PT FROM TOBI KOEHLER AT APPROX 0700. PT IS STABLE AT TIME OF SHIFT CHANGE. PT IS RESTING IN BED. PT IS CALM AND COMPLIANT WITH MEDICATIONS AND ASSESSMENT. PT IS COMPLIANT WITH MEDICATIONS WHOLE WITH WATER. PT IS RESTING IN BED AT THIS TIME. WILL CONTINUE TO MONITOR.
[2020-08-17] MEDS: ENOXAPARIN 40 MG/0.4 ML SYRINGE. SQ SCH (11:01)
[2020-08-17 11:20] VITALS: BP 123/75
--- NOTE | 2020-08-17 13:09 | RAD ---
EXAM: Chest CT without intravenous contrast. HISTORY: Shortness of breath. Elevated d-dimer. TECHNIQUE: Computed tomographic images of the chest were obtained without contrast. Multiplanar refor matting was performed. Intravenous contrast was administered for the exam. However, the contrast bolu s infiltrated and there is no contrast within the thorax during image acquisition. *One or more of the following individualized dose reduction techniques were utilized for this examina tion: 1. Automated exposure control. 2. Adjustment of the mA and/or kV according to patient size. 3. Use of iterative reconstruction technique. COMPARISON: 03/17/2018. FINDINGS: The heart is normal in size. The aorta is normal in caliber. There is calcified atheroscler otic plaque involving the aorta and coronary arteries. There is calcification of the mitral valve cristal ulus. No pathologically enlarged mediastinal or hilar lymph node is seen. There is a large hiatal hernia wi th intrathoracic positioning of the stomach. There is associated elevation of the left hemidiaphragm. There is a small left pleural effusion. There is left lower lobe and lingular compressive atelectasi s with possible superimposed interstitial infiltrate. There is right basilar atelectasis or pleural-parenchymal scarring. There is a 4 mm nodule within the right lung apex, stable compared to the prior study with allowing for differences in imaging techniq ue. There is also a stable 3 mL nodule abutting the pleura of the lateral left lung apex. There is incidental bilateral glenohumeral osteoarthritis. There are degenerative changes throughout the visualized thoracic and upper lumbar spine. There is no acute osseous finding. IMPRESSION: 1. Noncontrast exam due to contrast bolus infiltration. The exam is nondiagnostic for pulmonary embol ism. 2. Stable large hiatal hernia with intrathoracic positioning of the stomach and associated mild eleva tion of the left hemidiaphragm. 3. Lingular and left basilar compressive atelectasis and small left pleural effusion. The possibility of superimposed left lower lobe interstitial infiltrate is not excluded. 4. Small bilateral pulmonary nodules measuring up to 4 mm. The greater than two-year course of stabil ity favors benignity. 5. Please refer to the separate report for the abdomen and pelvis CT performed one day prior for intr a-abdominal findings. Electronically signed by: Karen Savage MD (08/17/2020 1:06 PM) [id number]
[2020-08-17 16:20] VITALS: BP 138/78
[2020-08-17] MEDS ORDERED: ZOLPIDEM 5 MG TABLET. PO PRN (16:30)
[2020-08-17] MEDS ORDERED: FUROSEMIDE 20 MG/2 ML VIAL IVP ONE (16:45)
[2020-08-17 19:10] VITALS: BP 127/73
[2020-08-17 23:24] VITALS: BP 116/88
[2020-08-18 06:00] VITALS: BP 144/81
[2020-08-18] MEDS: NYSTATIN TOPICAL POWDER 15GM BOTTLE. TP SCH (09:00)
[2020-08-18] MEDS: amLODIPine BESYLATE 10 MG TABLET PO SCH (09:07)
[2020-08-18] MEDS: ENOXAPARIN 40 MG/0.4 ML SYRINGE. SQ SCH (09:08)
[2020-08-18] MEDS ORDERED: POTASSIUM CHLORIDE 20 MEQ TABLET.ER. PO SCH (10:30)
[2020-08-18] MEDS ORDERED: FUROSEMIDE 40 MG/4 ML VIAL IVP ONE (10:30)
[2020-08-18] MEDS ORDERED: LISINOPRIL 20 MG TABLET PO SCH (10:30)
[2020-08-18 11:46] VITALS: BP 107/71
--- NOTE | 2020-08-18 12:07 | NUR ---
pt to be transferred [facility] room 402, report called to Thu KOEHLER at [id number].
--- NOTE | 2020-08-18 12:36 | NUR ---
EMS picked up pt and all belongings.
--- NOTE | 2020-08-25 22:03 | DS ---
DATE OF DISCHARGE: 08/18/2020 HOSPITAL COURSE: An 89-year-old female came in, having severe problems with nausea, vomiting, abdominal pain. The patient had a large left inguinal mass, which actually was a collection of her small and large bowel, as it was herniated through the hernia itself. The patient showed some reducing of it, but it kept coming out and she had this nausea, vomiting and CT scan also demonstrated the possibility of colitis involved with all this. She was also noted to have pancolitis as well as right nephrolithiasis, bilateral renal cysts on that CT scan. The patient's CBC was unremarkable. Chemistries did show an elevated sodium with some dehydration and her BNP was elevated. Albumin was slightly low at 3.1. Lipase was normal. Coags was slightly elevated, probably from the severe herniation. Due to the patient's family's request, we transferred her to [place] for a surgical consultation, possible repair or evaluation at least by the general surgeons for this large herniated mass, probably causing her nausea and vomiting. IMPRESSION: Pancolitis, dehydration, nausea, vomiting, left inguinal hernia with small and large bowel present, nephrolithiasis, moderate protein malnutrition. The patient was transferred via EMS to the [facility]. ANA/JUANITA DR: Thu TID: [id number]
== END 2020-08-18 12:40 | disposition short-term general hospital (02) | DRG 372 ==
LOC: 1 SOUTH 13:50
PROVIDERS: ADMIT Family Medicine; ATTEND Family Medicine
DX: A04.9 Bacterial intestinal infection, unspecified (principal); K51.00 Ulcerative (chronic) pancolitis without complications; E44.0 Moderate protein-calorie malnutrition; I50.32 Chronic diastolic (congestive) heart failure; E87.0 Hyperosmolality and hypernatremia; E86.0 Dehydration; I73.9 Peripheral vascular disease, unspecified; K40.90 Unilateral inguinal hernia, without obstruction or gangrene, not specified as recurrent; I11.0 Hypertensive heart disease with heart failure; N20.0 Calculus of kidney; K44.9 Diaphragmatic hernia without obstruction or gangrene; E66.9 Obesity, unspecified; F32.9 Major depressive disorder, single episode, unspecified; Z80.8 Family history of malignant neoplasm of other organs or systems; Z82.0 Family history of epilepsy and other diseases of the nervous system; Z82.49 Family history of ischemic heart disease and other diseases of the circulatory system; Z68.25 Body mass index [BMI] 25.0-25.9, adult
CPT/HCPCS: 36415; 71045; 71250; 74176; 80053; 82150; 83690; 83880; 85025; 85379; 93005; J1650; J1940; J1956; J3490; Q9967; 97110; 97530; 97535